=== PATIENT | female | born 1955 | race Caucasian/White ===

== ENCOUNTER 2022-07-02 17:07 | Observation (INO) | payer MEDICARE, OTHER ==
[2022-07-02] MEDS ORDERED: Polyethylene Glycol 3350 Powder 17 GM Packet PO PRN (19:10)
[2022-07-02] MEDS ORDERED: Acetaminophen 325 MG Tab PO PRN (19:10)
[2022-07-02] MEDS ORDERED: Ondansetron 4 MG Tab.DIS PO PRN (19:10)
[2022-07-02] MEDS ORDERED: Sodium Chloride 0.9% 10 ML Syringe FLUSH PRN (19:10)
[2022-07-02 19:29] LABS: ANION GAP 9.9 meq/L (7-15); CHLORIDE,CL 102 mmol/L (98-107); SODIUM,NA 141 mmol/L (136-145)
[2022-07-02 19:32] LABS: ESTIMATED GFR 21 mL/min (>=60)
[2022-07-02] MEDS: Lactated Ringers 1,000 ML IV SCH (20:32)
[2022-07-02] MEDS: OLANZapine 5 MG Tab PO SCH (20:32)
[2022-07-03] MEDS: Lactated Ringers 1,000 ML IV SCH ×2 (04:15→12:12)
[2022-07-03] MEDS: atorvaSTATin 20 MG Tab PO SCH (07:40)
[2022-07-03] MEDS: Levothyroxine 112 MCG Tab PO SCH (07:40)
[2022-07-03 07:53] LABS: ANION GAP 10.2 meq/L (7-15)
[2022-07-03] MEDS ORDERED: amLODIPine 5 MG Tab PO SCH (08:00)
[2022-07-03 15:46] LABS: ANION GAP 10.3 meq/L (7-15)
[2022-07-03] MEDS: OLANZapine 5 MG Tab PO SCH (19:16)
[2022-07-04] MEDS ORDERED: Furosemide 20 MG/2 ML VIAL IVPUSH ONE (08:00)
[2022-07-04] MEDS ORDERED: amLODIPine 5 MG Tab PO SCH (08:00)
[2022-07-04 08:12] LABS: ANION GAP 9.6 meq/L (7-15)
[2022-07-04] MEDS ORDERED: Furosemide 40 MG Tab PO ONE (08:30)
[2022-07-04] MEDS: Heparin Sodium 5,000 Units/ML Vial SUBCUT SCH ×2 (08:32→12:48)
[2022-07-04] MEDS: atorvaSTATin 20 MG Tab PO SCH (08:45)
[2022-07-04] MEDS: Levothyroxine 112 MCG Tab PO SCH (08:45)
[2022-07-04 15:19] LABS: ANION GAP 14.8 meq/L (7-15)
[2022-07-04 16:11] VITALS: BP 150/90; PULSE 75
== END 2022-07-04 16:15 | disposition home or self-care (01) ==
LOC: LL.MS 18:40
PROVIDERS: ADMIT Hospitalist; ATTEND Hospitalist
DX: N17.9 Acute kidney failure, unspecified (principal); E78.2 Mixed hyperlipidemia; I10 Essential (primary) hypertension; K21.9 Gastro-esophageal reflux disease without esophagitis; E03.9 Hypothyroidism, unspecified; F41.9 Anxiety disorder, unspecified; F32.A Depression, unspecified; E66.9 Obesity, unspecified; Z68.32 Body mass index [BMI] 32.0-32.9, adult; Z88.1 Allergy status to other antibiotic agents; Z88.6 Allergy status to analgesic agent; Z86.73 Personal history of transient ischemic attack (TIA), and cerebral infarction without residual deficits; Z98.890 Other specified postprocedural states; Z90.09 Acquired absence of other part of head and neck; Z90.49 Acquired absence of other specified parts of digestive tract; Z79.899 Other long term (current) drug therapy; Z79.890 Hormone replacement therapy
CPT/HCPCS: 36415; 80048; 80053; 82330; 83735; 84100; 84550; 85025; 85610; 96360; 96361; A9270-GY; G0378; G0379; J7120